=== PATIENT | male | born 1955 ===

== ENCOUNTER 2018-02-25 08:50 | Outpatient (CLI) | payer OTHER ==
[~2018-02-25] VITALS: Ht 172.7 cm; Wt 115.7 kg
== END 2018-02-25 09:10 | disposition home or self-care (01) ==
LOC: OFIC 805 08:50
DX: H93.13 Tinnitus, bilateral (principal); H91.8X3 Other specified hearing loss, bilateral

== ENCOUNTER 2018-03-22 09:03 | Outpatient (CLI) | payer OTHER ==
[~2018-03-22] VITALS: Ht 152.4 cm; Wt 102.1 kg
== END 2018-03-22 09:20 | disposition home or self-care (01) ==
LOC: OFIC 805 09:03
DX: H93.13 Tinnitus, bilateral (principal); H90.3 Sensorineural hearing loss, bilateral